=== PATIENT | female | born 1975 | race African-American/Black ===

== ENCOUNTER 2017-01-15 02:01 | Emergency (ER) | payer OTHER ==
[~2017-01-15] VITALS: Ht 157.5 cm; Wt 94.5 kg
[2017-01-15 02:07] VITALS: BP 146/86
== END 2017-01-15 03:48 | disposition left against medical advice (07) ==
LOC: ER 02:03
DX: R42 Dizziness and giddiness (principal); R10.9 Unspecified abdominal pain; Z53.21 Procedure and treatment not carried out due to patient leaving prior to being seen by health care provider

== ENCOUNTER 2017-11-08 02:28 | Emergency (ER) | payer SELFPAY ==
[~2017-11-08] VITALS: Ht 157.5 cm; Wt 86.0 kg
[2017-11-08] MEDS ORDERED: IBUPROFEN 600MG TABLET PO ONE (06:45)
[2017-11-08 06:47] VITALS: BP 124/84
== END 2017-11-08 06:50 | disposition home or self-care (01) ==
LOC: ER 02:28
DX: J45.909 Unspecified asthma, uncomplicated (principal); S63.91XA Sprain of unspecified part of right wrist and hand, initial encounter; F17.200 Nicotine dependence, unspecified, uncomplicated; W19.XXXA Unspecified fall, initial encounter; Y93.89 Activity, other specified; Y92.89 Other specified places as the place of occurrence of the external cause; Y99.8 Other external cause status
CPT/HCPCS: 73110; 73130; 99284; Z7610

== ENCOUNTER 2017-11-18 11:58 | Emergency (ER) | payer SELFPAY ==
[~2017-11-18] VITALS: Ht 157.5 cm; Wt 88.0 kg
[2017-11-18] MEDS ORDERED: IPRATROPIUM BROMIDE (0.02%) 0.5MG/2.5ML NEB HHN STA (16:38)
[2017-11-18] MEDS ORDERED: PREDNISONE 20MG TABLET PO STA (16:38)
[2017-11-18] MEDS ORDERED: ALBUTEROL (0.083%) 2.5MG/3ML NEB HHN STA (16:38)
[2017-11-18] MEDS ORDERED: KETOROLAC 60MG/2ML VIAL IM ONE (16:45)
[2017-11-18] MEDS ORDERED: CYCLOBENZAPRINE 10MG TABLET PO ONE (16:45)
[2017-11-18 18:05] VITALS: BP 146/82
== END 2017-11-18 18:48 | disposition home or self-care (01) ==
LOC: ER 11:58
DX: R07.89 Other chest pain (principal); M79.602 Pain in left arm; I10 Essential (primary) hypertension; J44.9 Chronic obstructive pulmonary disease, unspecified; F17.210 Nicotine dependence, cigarettes, uncomplicated
CPT/HCPCS: 71046; 81025; 93005; 94640; 96372; 99284; J1885; J7512; J7611; Z7610